=== PATIENT | male | born 1985 | race Caucasian/White ===

== ENCOUNTER 2017-12-19 19:28 | Emergency (ER) | payer BC ==
[2017-12-19 19:35] VITALS: BP 228/200
[2017-12-19] MEDS ORDERED: Metoclopramide 10 MG/2 ML SDV IVPUSH ONE (19:40)
[2017-12-19] MEDS ORDERED: HYDROmorphone 0.5 MG/0.5 ML SYRINGE IVPUSH ONE ×2 (19:40→20:15)
--- NOTE | 2017-12-19 19:42 | EDM.PDOC ---
ED HPI GENERAL MEDICAL PROBLEM - General Chief Complaint: Abdominal Pain Stated Complaint: STOMACH PAIN Time Seen by Provider: 12/19/17 19:36 Source of Information: Reports: Patient History Limitations: Reports: No Limitations - History of Present Illness INITIAL COMMENTS - FREE TEXT/NARRATIVE: 32-year-old male presents the ED with severe right lower quadrant lateral abdominal pain. States he had pain develop in this area yesterday afternoon but it more or less came and went and was mild to moderate in degree. Slept well overnight. Pain was present again this morning but worsened about 6 hours ago. Pain is now intense enough to make him very nauseated and got in a sweat double up to the point that he could barely walk. Pain radiates down to the groin towards his testicle. No history of noted blood in the urine. No history of kidney stones. He ate a full meal within the last hour without any vomiting. His appendix. Previous abdominal surgery was that of repair when he was an I believe for pyloric stenosis. He never had any flank pain. Onset: Gradual Onset Date: 12/18/17 Onset Time: 14:00 (First noted yesterday afternoon but it is mild to moderate he continued to work with the pain. 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.) Right Lower Abdomen Pain Score (Numeric/FACES): 9 - Related Data Allergies Allergy/AdvReac Type Severity Reaction Status Date / Time No Known Allergies Allergy Verified 12/19/17 19:36 Home Meds: Home Meds Levofloxacin [Levaquin] 500 mg PO DAILY #6 tab 12/19/17 [Rx] oxyCODONE HCl/Acetaminophen [Percocet 10-325 mg Tablet] 1 - 2 each PO Q4H PRN # 28 tablet 12/19/17 [Rx] Past Medical History - Past Health History Medical/Surgical History: Denies Medical/Surgical History - Past Surgical History GI Surgical History: Reports: Other (See Below) (Pyloric stenosis repair as an .) Social & Family History - Living Situation & Occupation Living situation: Reports: Single Occupation: Employed ED ROS GENERAL - Review of Systems Review Of Systems: See Below Constitutional: Reports: No Symptoms, Diaphoresis. Denies: Fever, Chills, Malaise, Weakness HEENT: Reports: No Symptoms (Currently sweating terribly.) Respiratory: Reports: Shortness of Breath Cardiovascular: Reports: No Symptoms (Deep breathing makes the pain worse) Endocrine: Reports: No Symptoms, Other (Obesity.) GI/Abdominal: Reports: Abdominal Pain : Reports: No Symptoms (Right lower quadrant abdominal pain.) Musculoskeletal: Reports: No Symptoms Skin: Reports: No Symptoms Neurological: Reports: No Symptoms Psychiatric: Reports: No Symptoms Hematologic/Lymphatic: Reports: No Symptoms Immunologic: Reports: No Symptoms ED EXAM, GI/ABD - Physical Exam Exam: See Below Exam Limited By: No Limitations General Appearance: Alert, WD/WN, Severe Distress (In quite marked distress. BP is 2 28/1/80. Diaphoretic beads of sweat on his forehead. Obviously in severe pain.) Eyes: Bilateral: Normal Appearance (No scleral icterus.) Head: Atraumatic, Normocephalic Respiratory/Chest: No Respiratory Distress, Lungs Clear, Normal Breath Sounds, No Accessory Muscle Use, Other Cardiovascular: Normal Peripheral Pulses (Deep breathing makes the abdominal pain worse.), Regular Rate, Rhythm, No Edema, No Gallop, No Murmur GI/Abdominal Exam: Normal Bowel Sounds, Other (Will not be able to perform a full abdominal examination to the patient can relax enough to lie down. He is in the seated position as is the only position carpal. Does have bowel sounds present all 4 quadrants.) Back Exam: Normal Inspection, Full Range of Motion. No: CVA Tenderness (L), CVA Tenderness (R) Extremities: Normal Inspection, Normal Range of Motion, Non-Tender, No Pedal Edema Neurological: Alert, Oriented, CN II-XII Intact, Normal Cognition, Other Psychiatric: Other (In severe pain) Skin Exam: Diaphoretic Course - Vital Signs Last Recorded V/S: Last Vital Signs Temp 36.5 C 12/19/17 19:32 Pulse 117 H 12/19/17 19:32 Resp 20 12/19/17 19:32 BP 228/200 H 12/19/17 19:32 Pulse Ox 97 12/19/17 19:32 - Orders/Labs/Meds Orders: Active Orders 24 hr Category Date Time Status URINALYSIS W/MICROSCOPIC [UA W/MICROSCOPIC] [URIN] Stat Lab 12/19/17 19:41 Ordered Sodium Chloride 0.9% [Normal Saline] 1,000 ml Med 12/19/17 20:00 Active IV ASDIRECTED Medication Orders Sodium Chloride (Normal Saline) 1,000 mls @ 125 mls/hr IV ASDIRECTED SULAIMAN Last Admin: 12/19/17 20:00 Dose: 125 mls/hr Labs: Laboratory Tests 12/19/17 12/19/17 12/19/17 Range/Units 19:33 19:33 19:33 WBC 16.43 H (4.23-9.07) K/mm3 RBC 4.63 (4.63-6.08) M/mm3 Hgb 15.2 (13.7-17.5) gm/L Hct 45.2 (40.1-51.0) % MCV 97.6 H (79.0-92.2) fl MCH 32.8 H (25.7-32.2) pg MCHC 33.6 (32.2-35.5) g/dl RDW Std Deviation 40.9 (35.1-43.9) fL Plt Count 260 (163-337) K/mm3 MPV 9.6 (9.4-12.3) fl Neutrophils % (Manual) 56 (40-60) % Band Neutrophils % 0 (0-10) % Lymphocytes % (Manual) 34 (20-40) % Atypical Lymphs % 0 % Monocytes % (Manual) 8 (2-10) % Eosinophils % (Manual) 2 (0.8-7.0) % Basophils % (Manual) 0 L (0.2-1.2) Platelet Estimate Adequate RBC Morph Comment Normal Sodium 136 (136-145) mEq/L Potassium 4.0 (3.5-5.1) mEq/L Chloride 100 (98-107) mEq/L Carbon Dioxide 24 (21-32) mEq/L Anion Gap 16.0 H (5-15) BUN 12 (7-18) mg/dL Creatinine 1.1 (0.7-1.3) mg/dL Est Cr Clr Drug Dosing 100.47 mL/min Estimated GFR (MDRD) > 60 (>60) mL/min BUN/Creatinine Ratio 10.9 L (14-18) Glucose 106 (74-106) mg/dL Lactic Acid 1.5 (0.4-2.0) mmol/L Calcium 9.0 (8.5-10.1) mg/dL Total Bilirubin 0.7 (0.2-1.0) mg/dL AST 49 H (15-37) U/L ALT 87 H (16-63) U/L Alkaline Phosphatase 60 (46-116) U/L C-Reactive Protein 3.5 H* (<1.0) mg/dL Total Protein 8.5 H (6.4-8.2) g/dl Albumin 3.9 (3.4-5.0) g/dl Globulin 4.6 gm/dL Albumin/Globulin Ratio 0.9 L (1-2) Lipase 189 (73-393) U/L Meds: Medications Generic Name Dose Route Start Last Admin Trade Name Freq PRN Reason Stop Dose Admin Sodium Chloride 1,000 mls @ 125 mls/hr 12/19/17 20:00 12/19/17 20:00 Normal Saline IV 125 mls/hr ASDIRECTED SULAIMAN Administration Discontinued Medications Generic Name Dose Route Start Last Admin Trade Name Freq PRN Reason Stop Dose Admin Hydromorphone HCl 1 mg 12/19/17 19:40 12/19/17 20:02 Dilaudid IVPUSH 12/19/17 19:41 1 mg ONETIME ONE Administration Hydromorphone HCl 1 mg 12/19/17 20:15 12/19/17 20:20 Dilaudid IVPUSH 12/19/17 20:16 1 mg ONETIME ONE Administration Metoclopramide HCl 10 mg 12/19/17 19:40 12/19/17 20:01 Reglan IVPUSH 12/19/17 19:41 10 mg ONETIME ONE Administration - Radiology Interpretation Free Text/Narrative:: 32-year-old male presents the ED with acute onset of right lower quadrant abdominal pain very severe over the last 6 hours. However the pain first came on yesterday afternoon while at work but he considered mild to moderate was able to work through the pain. It seemed to settle down a bit last night and he slept okay. Pain was present when he awoke this morning but is worsened as the day has gone on. He's been able to eat all 3 meals today. Pain currently is making him nauseated but he has not had any emesis. States he is voiding normally without any blood in the urine. No history of kidney stones. No flank pain. No feeling of need to void extensively. Primarily right lower quadrant of the abdomen laterally. Initially not able to perform an adequate abdominal examination is he's not able to lie down. Plan pain management IV normal saline at 150 mils per hour. Given Dilaudid 1 mg IV with Reglan 10 mg IV for acute pain and nausea relief. Will reexamine once he is able to lie flat to determine what form of imaging require. Ordered routine labs, lactic acid and urinalysis. - Re-Assessments/Exams Free Text/Narrative Re-Assessment/Exam: 12/19/17 20:16 patient is now able to lie flat. Abdominal examination reveals bowel sounds are active in all 4 quadrants. Tenderness is well localized to the right lower quadrant lateral abdominal wall without a hernia palpable. There is no inguinal or umbilical hernia. He does have pain on deep palpation lateral to McBurney's point. Possibility of appendicitis exists although is very unusual that he would still have such a good appetite. Plan repeat Dilaudid 1 mg IV as his pain is still 6 out of 10. He will have CT the abdomen per renal protocol. 12/19/17 21:01 Labs are back and reveal an elevated white count at 16.43. 56% neutrophils and no bands. Hemoglobin is 15.2 with hematocrit of 45.2. Platelet count is 260,000. Sodium was 136 with a potassium of 4.0. Thyroid 100 with bicarbonate 24. And a gap is 16.0 slightly elevated. BUN is 12 with a creatinine of 1.1. Glucose is 106. Lactic acid is 1.5. Calcium is 9.0. Bilirubin is 0.7 AST mildly elevated at 49 ALT mildly elevated at 87. Alk phosphatase is 60. C-reactive protein is elevated at 3.5. Lipase is 189. Urinalysis is not yet become available 12/19/17 21:30: CT of the abdomen is now back. I can visualize a large amount of stool throughout the right hemicolon particularly the cecum. The appendix is also well visualized. However there is an area of inflammation behind or retro- cecal that is revealing some inflammation. 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 Kidneys are normal without any signs of stones or ureteric obstruction. Gallbladder is normal without any stones liver pancreas and spleen also appear normal. Decision made to allow the stoma to go home as his pain is pretty well controlled this time. However he is going to need pain medication for the next 2-3 days until this infarcted area settles down. 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 Prescribed Percocet 10/325 milligram tabs one or 2 every 4-6 hours needed for pain relief. Levaquin 500 mg once daily for 6 days to cover for any potential infection in infarcted tissue. Will return if not markedly improved in 72 hours time or sooner if condition worsens. Departure - Departure Time of Disposition: 21:44 Disposition: Home, Self-Care 01 Condition: Fair Clinical Impression: Infarcted appendices epiploicae Abdominal pain Qualifiers: Abdominal location: right lower quadrant Qualified Code(s): R10.31 - Right lower quadrant pain - Discharge Information Prescriptions: Levofloxacin [Levaquin] 500 mg PO DAILY #6 tab oxyCODONE HCl/Acetaminophen [Percocet 10-325 mg Tablet] 1 - 2 each PO Q4H PRN # 28 tablet PRN Reason: abdominal pain. Referrals: PCP,None [Primary Care Provider] - Forms: ED Department Discharge, ED Return to Work/School Form Additional Instructions: Evaluation in the emergency him today in regards to onset of severe right lower quadrant abdominal pain over the last 6 hours. Milder pain yesterday in the same area. Lab work revealed an elevated white count due to stress response or pain response. No signs of infection are evident. CT scan of the abdomen reveals an infarcted appendices epiploicae a. These are big fat globules that hanging off the colon in all of those. One of them in the right lower part of the colon has twisted on itself cutting off its blood supply and thus causing severe pain. This pain is worse now than it will be and will gradually start to improve. However the pain will likely last 3-5 days in total. Therefore you will not be able to work for the next 3-5 days due to need for stronger pain medications. Use a stronger pain medication one or 2 tabs every 4-6 hours as needed for the next day or so. Once things are improved may re-switch to Motrin 600 mg every 6 hours to relieve pain. Take antibiotic Levaquin 500 milligram once daily for the next 6 days starting tonight to prevent secondary infection. Return to the ED if pain not markedly improved in 72 hours time. - My Orders Last 24 Hours: My Active Orders 12/19/17 19:41 URINALYSIS W/MICROSCOPIC [UA W/MICROSCOPIC] [URIN] Stat 12/19/17 20:00 Sodium Chloride 0.9% [Normal Saline] 1,000 ml IV ASDIRECTED - Assessment/Plan Last 24 Hours: My Active Orders 12/19/17 19:41 URINALYSIS W/MICROSCOPIC [UA W/MICROSCOPIC] [URIN] Stat 12/19/17 20:00 Sodium Chloride 0.9% [Normal Saline] 1,000 ml IV ASDIRECTED
[2017-12-19] MEDS ORDERED: Sodium Chloride 0.9% 1,000 ML IV SCH (20:00)
--- NOTE | 2017-12-19 21:17 | CT ---
CT abdomen and pelvis Technique: Multiple axial sections were obtained from above the dome of the diaphragm inferiorly through the pubic symphysis. Intravenous and oral contrast not utilized. Study has been performed as a ureteral stone protocol. Findings: Kidneys show no abnormal calcifications. No ureteral dilatation is seen. No abnormal calcifications are seen within the ureters. Small portion of the visualized lung bases shows a small calcified granuloma within the right lung base. Liver shows diffuse fatty infiltration. Spleen size is normal. Adrenal glands show no nodule. Pancreas appears within normal limits. Gallbladder contains no calcified gallstones. Aorta shows no aneurysmal dilatation. No retroperitoneal adenopathy or mesenteric abnormalities are seen. No pelvic mass or adenopathy is seen. Appendix is seen which appears normal in size. No free fluid is seen. Slight inflammatory change is seen off the right colon near the cecum. Findings most likely represent epiploic appendagitis. No other inflammatory change is seen. Bone window settings were reviewed which appear within normal limits for the patient's age. Minimal fat-containing umbilical hernia is incidentally noted. Impression: 1. Mild inflammatory change off the right colon near the cecum. This inflammatory change is most likely representing epiploic appendagitis. 2. Fatty infiltration within the liver. 3. Appendix is normal. No renal calculi or ureteral stone is seen. Diagnostic code #3
== END 2017-12-19 21:54 | disposition home or self-care (01) ==
LOC: JD.ED 19:28
DX: K55.049 Acute infarction of large intestine, extent unspecified (principal); Z79.899 Other long term (current) drug therapy
CPT/HCPCS: 36415; 74176; 80053; 83605; 83690; 85007; 85027; 86140; 96361; 96374; 96375; 99284; J1170; J2765; J7040

== ENCOUNTER 2024-12-29 18:12 | Emergency (ER) | payer OTHER ==
[2024-12-29] MEDS ORDERED: Sodium Chloride 0.9% 10 ML Syringe FLUSH PRN (18:35)
[2024-12-29 19:02] LABS: BASOPHILS ABSOLUTE AUTO 0.1 K/mm3 (0.0-0.2); BASOPHILS PERCENT AUTO 0.8 % (0.0-1.0); EOSINOPHILS ABSOLUTE AUTO 0.1 K/mm3 (0.0-0.4); EOSINOPHILS PERCENT AUTO 1.2 % (0.0-6.0); HEMATOCRIT 43.3 % (42.0-52.0); IMMATURE GRAN ABSOLUTE AUTO 0.03 K/mm3 (0.00-0.05); IMMATURE GRAN PERCENT AUTO 0.5 % (0.0-0.4); LYMPHOCYTES ABSOLUTE AUTO 2.1 K/mm3 (1.0-4.8); LYMPHOCYTES PERCENT AUTO 31.7 % (24.0-44.0); MEAN CORPUSCULAR HEMOGLOBIN 34.6 pg (28.0-32.0); MEAN CORPUSCULAR HGB CONC 34.6 g/dl (32.0-36.0); MEAN CORPUSCULAR VOLUME 99.8 fl (83.0-99.0); MEAN PLATELET VOLUME 9.8 fl (9.4-12.4); MONOCYTES ABSOLUTE AUTO 0.7 K/mm3 (0.0-0.8); MONOCYTES PERCENT AUTO 11.3 % (0.0-8.0); NEUTROPHILS ABSOLUTE AUTO 3.6 K/mm3 (1.8-7.7); NEUTROPHILS PERCENT AUTO 54.5 % (41.0-71.0); PLATELET COUNT,PLT 141 K/mm3 (150-400); RED BLOOD CELL COUNT 4.34 M/mm3 (4.52-5.90); WHITE BLOOD CELL COUNT,WBC 6.57 K/mm3 (3.9-11.3)
[2024-12-29] MEDS: Sodium Chloride 0.9% 1,000 ML IV SCH (19:35)
[2024-12-29] MEDS: Ondansetron 4 MG/2 ML SDV IVPUSH ONE (19:35)
[2024-12-29] MEDS: Labetalol 100 MG/20 ML MDV IVPUSH ONE (19:36)
[2024-12-29 19:40] LABS: A/G RATIO 0.9 (1-2); ALBUMIN 3.5 g/dl (3.4-5.0); BILIRUBIN TOTAL 0.6 mg/dL (0.2-1.0); BUN/CREATININE RATIO 12.7 (14-18); CALCIUM 8.5 mg/dL (8.5-10.1); CREATININE 1.1 mg/dL (0.7-1.3); EST CRCL DRUG DOSING (CG) 96.98 mL/min; MAGNESIUM 1.7 mg/dL (1.8-2.4); PROTEIN TOTAL,TP 7.5 g/dl (6.4-8.2)
[2024-12-29 20:45] VITALS: BP 152/92; PULSE 95
== END 2024-12-29 20:35 | disposition home or self-care (01) ==
LOC: JD.ED 18:12
DX: I10 Essential (primary) hypertension (principal); R11.2 Nausea with vomiting, unspecified
CPT/HCPCS: 36415; 80053; 83690; 83735; 84484; 85025; 93005; 96361; 96374; 96375; 99284; J1920; J2405; J7030; 93010